=== PATIENT | female | born 1995 | race African-American/Black ===

== ENCOUNTER 2019-01-22 13:31 | Emergency (ER) | payer SELFPAY ==
[~2019-01-22] VITALS: Ht 165.1 cm; Wt 75.0 kg
[2019-01-22 13:44] VITALS: Ht 165.1 cm; Wt 75.0 kg
[2019-01-22] MEDS ORDERED: MEDROL DOSE PACK4 MG PO (14:41)
[2019-01-22] MEDS ORDERED: HYDROCORTISO28.35 G1 TOPICAL (14:41)
[2019-01-22 15:31] VITALS: BP 132/78
== END 2019-01-22 15:31 | disposition home or self-care (01) ==
LOC: D.ER 13:31
DX: L20.9 Atopic dermatitis, unspecified (principal)

== ENCOUNTER 2021-05-05 20:00 | Emergency (ER) | payer BC ==
[~2021-05-05] VITALS: Ht 167.6 cm; Wt 79.1 kg
[~2021-05-05 20:00] MED LIST: HYDROCORTISO28.35 G1 TOPICAL; MEDROL DOSE PACK4 MG PO; NAPROSYN500 MG PO; TYLENOL #4 W/CO1 TAB PO
[2021-05-05 20:07] VITALS: Ht 167.6 cm; Wt 79.1 kg
[2021-05-05 21:19] LABS: BILIRUBIN NEGATIVE (NEGATIVE); KETONE NEGATIVE mg/dL (< 1+); NITRITE NEGATIVE (NEGATIVE); PH 6.5 (5.0-8.0); SQUAMOUS EPITHELIAL 1 HPF (0-4); UROBILINOGEN NORMAL mg/dL (< 2); WHITE CELLS - URINE 3 HPF (0-4)
[2021-05-05 21:59] LABS: BASOPHILS 0.3 % (0-2); HEMATOCRIT 39.6 % (36.0-48.0); HEMOGLOBIN 12.8 g/dL (12-16); LYMPHOCYTES 20.1 % (15-50); MCH 27.8 pg (26.0-34.0); MCHC 32.4 g/dL (31.0-37.0); MCV 85.8 fL (80.0-100.0); MEAN PLATELET VOLUME 9.3 fL (7.4-10.4); MONOCYTES 7.5 % (2-11); NEUTROPHILS 71.1 % (40-80); PLATELET COUNT 170 10x3/uL (130-400); RBC 4.62 10x6/uL (4.00-5.40); RDW 13.8 % (11.5-14.5); WBC 7.6 10x3/uL (4.8-10.8)
[2021-05-05 22:14] LABS: ALBUMIN 3.4 g/dL (3.4-5.0); ALKALINE PHOSPHATASE 62 U/L (30-120); ALT (SGPT) 17 U/L (10-68); BILIRUBIN - TOTAL 0.18 mg/dL (0.2-1.3); CALC OSMOLALITY 276 mosm/kg (275-300); CALCIUM 8.9 mg/dL (8.5-10.1); CARBON DIOXIDE 29.8 mmol/L (21.0-32.0); CHLORIDE - SERUM 106 mmol/L (98-107); CREATININE - SERUM 0.8 mg/dL (0.6-1.3); GLUCOSE 86 mg/dL (74-106); POTASSIUM - SERUM 3.4 mmol/L (3.5-5.1); PROTEIN - SERUM 6.7 g/dL (6.4-8.2); SODIUM 140 mmol/L (136-145); UREA NITROGEN 11 mg/dL (7-18); eGFR NON AFRICAN AMERICAN > 90 mL/min (90-120)
[2021-05-05] MEDS ORDERED: METHOCARBAMOL500 MG PO (22:34)
[2021-05-05] MEDS ORDERED: NAPROSYN500 MG PO (22:34)
[2021-05-05 23:44] LABS: HCG SERUM NEGATIVE (NEGATIVE)
[2021-05-05 23:52] VITALS: BP 128/61
== END 2021-05-05 23:30 | disposition home or self-care (01) ==
LOC: D.ER 20:00
PROVIDERS: Emergency Medicine
DX: S16.1XXA Strain of muscle, fascia and tendon at neck level, initial encounter (principal); S39.012A Strain of muscle, fascia and tendon of lower back, initial encounter; S20.211A Contusion of right front wall of thorax, initial encounter; V49.9XXA Car occupant (driver) (passenger) injured in unspecified traffic accident, initial encounter; E87.6 Hypokalemia